=== PATIENT | female | born 1940 | race Caucasian/White ===

== ENCOUNTER 2017-01-14 08:11 | Emergency (ER) | payer OTHER ==
[~2017-01-14] VITALS: Ht 157.5 cm; Wt 64.4 kg
[~2017-01-14 08:11] MED LIST: ASPIRIN EC81 M1 PO; ASPIRIN81 M4 PO; ATORVASTATIN CA20 M1 PO; ATORVASTATIN CA40 M1 PO; BYSTOLIC10 M1 PO; CALCIUM600 M2 PO; CO Q-10100 MG PO; FISH OIL 1,0001 EAC1 PO; HYDROCODON-ACE1 EAC2 PO; KLONOPIN0.5 M1 PO; NEXIUM20 M1 PO; PLAVIX75 M1 PO; PREDNISONE20 M1 PO; TIMOLOL MALEATE5 M4 OPH; VALSARTAN80 M1 PO
--- NOTE | 2017-01-14 08:29 | ED GENERAL ADULT ---
History of Present Illness General Chief Complaint: General Adult Stated Complaint: NO B/M X 7DAYS Source: patient, family, old records Exam Limitations: no limitations Vital Signs & Intake/Output Vital Signs & Intake/Output Vital Signs Date Time Temp Pulse Resp B/P Pulse O2 O2 Flow FiO2 Ox Delivery Rate 01/14 1059 52 18 140/73 98 Room Air 01/14 0814 98.3 65 20 152/75 96 Room Air Allergies Coded Allergies: cephalexin (From KEFLEX) (Intermediate, HIVES 05/05/16) latex (Intermediate, RASH 05/05/16) prednisone (Intermediate, FLUSHING FROM CHEST UP 05/05/16) amoxicillin (Mild, RASH TO HANDS AND FEET 05/05/16) Reconcile Medications Aspirin (Aspirin*) 81 MG TAB.CHEW 1 TAB PO DAILY HEART HEALTH (Reported) Atorvastatin Calcium 20 MG TABLET 20 MG PO 1700 HIGH CHOLESTROL Clopidogrel Bisulfate (Plavix) 75 MG TABLET 75 MG PO DAILY HEART Esomeprazole Magnesium (Nexium) 20 MG CAPSULE.DR 1 CAP PO DAILY GI (Reported) Nebivolol HCl (Bystolic) 10 MG TABLET 1 TAB PO DAILY HIGH BLOOD PRESSURE ( Reported) Mode-3 Fatty Acids/Fish Oil (Fish Oil 1,000 MG Softgel) 1 EACH CAPSULE 1 CAP PO BID SUPPLEMENT (Reported) Ubidecarenone (Co Q-10) 100 MG CAPSULE 1 CAP PO DAILY SUPPLEMENT (Reported) Valsartan 80 MG TABLET 1 TAB PO BID HEART Triage Note: PT TO ED C/O NO BM X 1 WEEK. HAS TRIED MILK OF MAG AND MIRILAX WITH NO RELIEF. Triage Nurses Notes Reviewed? yes HPI: Patient presents with a weeklong history of constipation. Patient states that she started using Voltaren gel and the symptoms started that same day. Patient states that she's had anorexia but there is been no nausea or vomiting. There is no abdominal pain. Patient spoke to her physician yesterday who told her to take MiraLAX and use a suppository. Patient states when she inserted the suppository she did not feel any stool in there. Patient has also tried milk of magnesia without any relief. Patient thinks that she might have lost about 2 pounds this week because she just has no desire to eat. Past History Travel History Traveled to [place] past 21 day No Medical History Any Pertinent Medical History? see below for history Neurological: TIA EENT: NONE Cardiovascular: hypertension, hyperlipidemia, syncope Respiratory: NONE Gastrointestinal: colitis, peptic ulcer disease Hepatic: NONE Renal: NONE Musculoskeletal: degen joint disease Psychiatric: NONE Endocrine: NONE Blood Disorders: NONE Cancer(s): NONE LABORER WHARF/Reproductive: NONE History of MRSA: No History of VRE: No History of CDIFF: No Pneumonia Vaccine: 10/02/14 Influenza Vaccine: 07/02/16 Surgical History Surgical History: appendectomy, cholecystectomy, hysterectomy (total abdominal), right breast surgery Psychosocial History Who do you live with Spouse Services at Home None What is your primary language Martiniquais Tobacco Use: Quit >30 days ago ETOH Use: denies use Illicit Drug Use: denies illicit drug use Family History Family History, If Any: FATHER (Hypertension). MOTHER Hx Contributory? No Review of Systems Review of Systems Constitutional: Reports: no symptoms. EENTM: Reports: no symptoms. Respiratory: Reports: no symptoms. Cardiovascular: Reports: no symptoms. GI: Reports: see HPI, constipation. Genitourinary: Reports: no symptoms. Musculoskeletal: Reports: no symptoms. Skin: Reports: no symptoms. Neurological/Psychological: Reports: no symptoms. Hematologic/Endocrine: Reports: no symptoms. Immunologic/Allergic: Reports: no symptoms. All Other Systems: Reviewed and Negative Physical Exam Physical Exam General Appearance: well developed/nourished, alert, awake, anxious, mild distress Head: atraumatic, normal appearance Eyes: Bilateral: PERRL, EOMI. Ears, Nose, Throat: normal pharynx, hearing grossly normal, MOIST MUSCOSA Neck: normal inspection, supple, full range of motion Respiratory: normal breath sounds, chest non-tender, no respiratory distress, lungs clear Cardiovascular: regular rate/rhythm, normal peripheral pulses Gastrointestinal: soft, non-tender, no organomegaly, HYPOACTIVE BOWEL SOUNDS Rectal: NO STOOL IN VAULT Back: normal inspection, normal range of motion Extremities: normal inspection, normal capillary refill, normal range of motion, no edema Neurologic/Psych: no motor/sensory deficits, awake, alert, oriented x 3, normal gait, normal mood/affect Skin: intact, normal color, warm/dry Lymphatic: no anterior cervical lilly Core Measures ACS in differential dx? No CVA/TIA Diagnosis: No Severe Sepsis Present: No Septic Shock Present: No Progress Differential Diagnoses I considered the following diagnoses in my evaluation of the patient: [ OBSTRUCTION, CANCER, CONSTIPATION] Plan of Care: Orders Procedure Date/time Status LACTIC ACID 01/14 1149 Active Enema 01/14 0952 Active LACTIC ACID 01/14 0849 Complete COMPREHENSIVE METABOLIC PANEL 01/14 08 Complete CBC WITHOUT DIFFERENTIAL 01/14 849 Complete Laboratory Tests 01/14/17 0856: Anion Gap 14, Estimated GFR > 60, BUN/Creatinine Ratio 23.3, Glucose 123 H, Lactic Acid 1.7, Calcium 9.9, Total Bilirubin 0.7, AST 21, ALT 32, Alkaline Phosphatase 72, Total Protein 6.4, Albumin 3.9, Globulin 2.5, Albumin/Globulin Ratio 1.6, CBC w Diff NO MAN DIFF REQ, RBC 4.37, MCV 90.4, MCH 29.5, RDW 13.4, MPV 9.9, Gran % 77.4 H, Lymphocytes % 13.7 L, Monocytes % 7.6, Eosinophils % 0.7, Basophils % 0.6, Absolute Granulocytes 5.9, Absolute Lymphocytes 1.0 L, Absolute Monocytes 0.6, Absolute Eosinophils 0.1, Absolute Basophils 0, PUBS MCHC 32.6 L Diagnostic Imaging: Viewed by Me: CT Scan. Discussed w/RAD: CT Scan. Radiology Impression: PATIENT: RICKY HOYT PRESENT AGE: 76 PATIENT ACCOUNT NO: [id number] : 38 LOCATION: [facility] ORDERING PHYSICIAN: STANLEY DELEON MD SERVICE DATE: 01/14/17 EXAM TYPE: CAT - CT ABD & PELVIS W/O IV CONTRAS EXAMINATION: CT ABDOMEN AND PELVIS WITHOUT CONTRAST CLINICAL INFORMATION: Constipation. COMPARISON: CT abdomen 01/2016. TECHNIQUE: Multidetector volumetric imaging was performed from the superior aspect of the liver through the pubic symphysis. Sagittal and coronal reformatted images were obtained on the technologist's workstation. DLP: 253 mGy -cm FINDINGS: LUNG BASES: There is scattered 6 mm pulmonary nodules in the lung bases with left basilar atelectasis or scarring. The heart size is normal. LIVER , GALLBLADDER, AND BILIARY TREE: The liver is normal in size, shape, and attenuation. No focal hepatic lesion or biliary ductal dilatation is present. The gallbladder has been surgically removed. PANCREAS: Unremarkable. SPLEEN: Unremarkable. ADRENAL GLANDS: Unremarkable. KIDNEYS AND URETERS: The kidneys are normal in size, shape, and attenuation. Nonobstructive 2 mm radiopaque calculi seen in the lower pole right kidney. No additional radiopaque calculi seen. There is no hydronephrosis.. BLADDER: Unremarkable. GASTROINTESTINAL TRACT: There is scattered stool seen throughout the colon without distention. There are scattered diverticuli descending and sigmoid colon without any colitis. The small bowel loops are normal caliber. Cecum lies in the mid abdomen. Appendix is not seen with certainty. ABDOMINAL WALL: There are small umbilical hernia containing intraperitoneal fat. A staple is noted just below the umbilicus. LYMPH NODES: Normal. VASCULAR: There is atherosclerotic calcification of abdominal aorta without aneurysmal dilatation. PELVIC VISCERA: There is no free air or free fluid. OSSEOUS STRUCTURES: Degenerative disc changes L3-L4 and L4-L5 disc levels. No lytic or sclerotic process seen. IMPRESSION: No acute intra- abdominal process seen. Scattered diverticuli in descending and sigmoid colon. Nonobstructive radiopaque calculi lower pole right kidney. No hydronephrosis. Small umbilical hernia with a surgical stable in anterior abdomen wall inferior to the umbilical hernia. Multiple small pulmonary nodules. Recommend outpatient CT chest for correlation. Left lower lobe atelectasis and/or scarring. DICTATED BY: ABIMAEL CAMPBELL MD DATE/TIME DICTATED:01/14/17935 GENERAL SCRAP WORKER:GRAYSON DATE/TIME TRANSCRIBED:01/14/17935 CONFIDENTIAL, DO NOT COPY WITHOUT APPROPRIATE AUTHORIZATION. <Electronically signed in Other Vendor System> SIGNED BY: ABIMAEL CAMPBELL MD 01/14/17 0947 Initial ED EKG: none Comments: Patient is feeling much better after soapsuds enema. Departure Departure Disposition: HOME OR SELF CARE Condition: Stable Clinical Impression Primary Impression: Constipation Referrals: JOSE ELLSWORTH,CHASIDY Hu (PCP/Family) Additional Instructions: Take MiraLAX twice a day. Stop the muscle relaxer. Return if symptoms worsen or for any concerns. Departure Forms: Customer Survey General Discharge Information Critical Care Note Critical Care Note Critical Care Time: non-applicable
[2017-01-14 09:07] LABS: ABSOLUTE BASOPHIL COUNT 0 /CUMM (0.0-0.2); ABSOLUTE EOSINOPHIL COUNT 0.1 /CUMM (0.0-0.7); ABSOLUTE GRANULOCYTE CT 5.9 /CUMM (1.4-6.5); ABSOLUTE MONOCYTE COUNT 0.6 /CUMM (0.10-0.60); BASOPHIL % 0.6 % (0.0-2.0); EOSINOPHIL % 0.7 % (0-5); GRANULOCYTE % 77.4 % (42.2-75.2); HEMATOCRIT 39.5 % (37-47); MEAN CORPUSCULAR HGB 29.5 PG (27.0-31.0); MEAN CORPUSCULAR HGB CONC 32.6 G/DL (33.0-37.0); MEAN CORPUSCULAR VOLUME 90.4 FL (81.0-99.0); MEAN PLATELET VOLUME 9.9 FL (7.4-10.4); PLATELET COUNT 197 /CUMM (130-400); RBC DISTRIBUTION WIDTH 13.4 % (11.5-14.5); RED BLOOD CELL CT 4.37 /CUMM (4.20-5.40); WHITE BLOOD CELL COUNT 7.6 /CUMM (4.8-10.8)
[2017-01-14] MEDS ORDERED: NEXIUM20 M1 PO (09:47)
--- NOTE | 2017-01-14 09:47 | CT SCAN REPORT ---
EXAMINATION: CT ABDOMEN AND PELVIS WITHOUT CONTRAST CLINICAL INFORMATION: Constipation. COMPARISON: CT abdomen 07/05/2016. TECHNIQUE: Multidetector volumetric imaging was performed from the superior aspect of the liver through the pubic symphysis. Sagittal and coronal reformatted images were obtained on the technologist's workstation. DLP: 253 mGy-cm FINDINGS: LUNG BASES: There is scattered 6 mm pulmonary nodules in the lung bases with left basilar atelectasis or scarring. The heart size is normal. LIVER, GALLBLADDER, AND BILIARY TREE: The liver is normal in size, shape, and attenuation. No focal hepatic lesion or biliary ductal dilatation is present. The gallbladder has been surgically removed. PANCREAS: Unremarkable. SPLEEN: Unremarkable. ADRENAL GLANDS: Unremarkable. KIDNEYS AND URETERS: The kidneys are normal in size, shape, and attenuation. Nonobstructive 2 mm radiopaque calculi seen in the lower pole right kidney. No additional radiopaque calculi seen. There is no hydronephrosis.. BLADDER: Unremarkable. GASTROINTESTINAL TRACT: There is scattered stool seen throughout the colon without distention. There are scattered diverticuli descending and sigmoid colon without any colitis. The small bowel loops are normal caliber. Cecum lies in the mid abdomen. Appendix is not seen with certainty. ABDOMINAL WALL: There are small umbilical hernia containing intraperitoneal fat. A staple is noted just below the umbilicus. LYMPH NODES: Normal. VASCULAR: There is atherosclerotic calcification of abdominal aorta without aneurysmal dilatation. PELVIC VISCERA: There is no free air or free fluid. OSSEOUS STRUCTURES: Degenerative disc changes L3-L4 and L4-L5 disc levels. No lytic or sclerotic process seen. IMPRESSION: No acute intra-abdominal process seen. Scattered diverticuli in descending and sigmoid colon. Nonobstructive radiopaque calculi lower pole right kidney. No hydronephrosis. Small umbilical hernia with a surgical stable in anterior abdomen wall inferior to the umbilical hernia. Multiple small pulmonary nodules. Recommend outpatient CT chest for correlation. Left lower lobe atelectasis and/or scarring.
[2017-01-14 10:59] VITALS: BP 140/73
== END 2017-01-14 11:18 ==
LOC: ERH 08:11
PROVIDERS: Emergency Medicine
DX: K59.00 Constipation, unspecified (principal)
CPT/HCPCS: 74176